=== PATIENT | female | born 1955 | race Caucasian/White ===

== ENCOUNTER 2025-01-19 11:50 | Inpatient (IN) | payer MEDICARE, OTHER ==
[~2025-01-19] VITALS: Ht 157.5 cm; Wt 74.0 kg
[2025-01-19] VITALS (9 sets, daily range): BP systolic 121–135; BP diastolic 68–94; TEMP 97.9–99.1; O2SAT 99–100
[~2025-01-19 11:50] MED LIST: ERGO500093 PO
[2025-01-19 12:40] LABS: BASOPHILS # (AUTO) 0.1 K/uL (0.0-0.2); BASOPHILS % (AUTO) 1.1 % (0.0-2.0); EOSINOPHILS # (AUTO) 0.1 K/uL (0.0-0.7); EOSINOPHILS % (AUTO) 0.8 % (0.0-6.0); HEMATOCRIT 23 % (33-45); HEMOGLOBIN 7.3 g/dL (11.5-14.8); LYMPHOCYTES # (AUTO) 1.5 K/uL (0.8-4.8); LYMPHOCYTES % (AUTO) 19.4 % (20.0-44.0); MEAN CORPUSCULAR HEMOGLOBIN 28 PG (26.0-33.0); MEAN CORPUSCULAR HGB CONC 31 g/dl (31.0-36.0); MEAN CORPUSCULAR VOLUME 88 fL (82-100); MONOCYTES # (AUTO) 1.1 K/uL (0.1-1.30); MONOCYTES % (AUTO) 14.1 % (2.0-12.0); NEUTROPHILS # (AUTO) 4.9 K/uL (1.8-8.9); NEUTROPHILS % (AUTO) 64.6 % (43.0-81.0); PLATELET COUNT (AUTO) 358 K/uL (150-450); RED BLOOD CELL COUNT(AUTO) 2.65 MIL/uL (4.0-5.2); RED CELL DISTRIBUTION WIDTH 25.7 % (11.5-15.0); WHITE BLOOD COUNT (AUTO) 7.5 K/uL (4.3-11.0)
[2025-01-19 12:47] LABS: CALCIUM, SERUM 9.3 mg/dL (8.5-10.1); CREATININE 0.8 mg/dL (0.6-1.3); POTASSIUM 3.7 mmol/L (3.5-5.1)
[2025-01-19 12:53] LABS: INR 1.09 (0.91-1.10); PARTIAL THROMBOPLASTIN TIME 23.9 SEC (24.3-34.3); PROTHROMBIN TIME 11.2 SECS (9.2-11.1)
[2025-01-19] MEDS ORDERED: MAG HYDROX/AL HYDROX/SIMETH 30 ML UDC PO PRN (16:30)
[2025-01-19] MEDS ORDERED: MAGNESIUM HYDROXIDE 30 ML UDC PO PRN (16:30)
[2025-01-19] MEDS ORDERED: HYDROCODONE/APAP 5/325MG TABLET PO PRN (16:30)
[2025-01-19] MEDS ORDERED: ONDANSETRON HCL/PF 4 MG/2 ML VIAL IVP PRN (16:30)
[2025-01-19] MEDS ORDERED: Z GUARD REMEDY 4 OZ OINT TP PRN (16:30)
[2025-01-19] MEDS ORDERED: ACETAMINOPHEN 325 MG TABLET PO PRN (16:30)
[2025-01-19] MEDS ORDERED: IOHEXOL-300 100 ML VIAL IV ONE (17:29)
[2025-01-19] MEDS ORDERED: IV NS 0.9% 250 ML IV ONE (17:29)
[2025-01-19] MEDS ORDERED: ATOR20TA PO (19:45)
[2025-01-19] MEDS ORDERED: PROC-11 PO (19:45)
[2025-01-19] MEDS ORDERED: ACET-637 PO (19:45)
[2025-01-19] MEDS ORDERED: MENT71OI TP (19:45)
[2025-01-19] MEDS ORDERED: ACET325T53 PO (19:45)
[2025-01-19] MEDS ORDERED: ONDA4TAB11 PO (19:45)
[2025-01-19] MEDS ORDERED: DOCU100C36 PO (19:45)
[2025-01-19] MEDS ORDERED: PANT40TA49 PO (19:45)
[2025-01-19] MEDS ORDERED: QUET50TA PO (19:45)
[2025-01-19] MEDS ORDERED: MULT-594 PO (19:45)
[2025-01-20 03:32] LABS: CALCIUM, SERUM 8.8 mg/dL (8.5-10.1); CREATININE 0.7 mg/dL (0.6-1.3); MAGNESIUM 2.1 mg/dL (1.8-2.4); POTASSIUM 3.5 mmol/L (3.5-5.1)
[2025-01-20 03:47] LABS: BASOPHILS # (AUTO) 0.2 K/uL (0.0-0.2); BASOPHILS % (AUTO) 3.3 % (0.0-2.0); EOSINOPHILS # (AUTO) 0.1 K/uL (0.0-0.7); EOSINOPHILS % (AUTO) 0.9 % (0.0-6.0); HEMATOCRIT 27 % (33-45); HEMOGLOBIN 8.4 g/dL (11.5-14.8); LYMPHOCYTES # (AUTO) 2.1 K/uL (0.8-4.8); LYMPHOCYTES % (AUTO) 27.9 % (20.0-44.0); MEAN CORPUSCULAR HEMOGLOBIN 28 PG (26.0-33.0); MEAN CORPUSCULAR HGB CONC 31 g/dl (31.0-36.0); MEAN CORPUSCULAR VOLUME 88 fL (82-100); MONOCYTES # (AUTO) 1.1 K/uL (0.1-1.30); MONOCYTES % (AUTO) 15.4 % (2.0-12.0); NEUTROPHILS # (AUTO) 3.9 K/uL (1.8-8.9); NEUTROPHILS % (AUTO) 52.5 % (43.0-81.0); PLATELET COUNT (AUTO) 366 K/uL (150-450); RED BLOOD CELL COUNT(AUTO) 3.04 MIL/uL (4.0-5.2); RED CELL DISTRIBUTION WIDTH 23.9 % (11.5-15.0); WHITE BLOOD COUNT (AUTO) 7.4 K/uL (4.3-11.0)
[2025-01-20 04:27] LABS: ANISOCYTOSIS 2+; BASOPHILS % (MANUAL) 1 % (0.0-2.0); LYMPHOCYTES % (MANUAL) 22 % (16-48); MONOCYTES % (MANUAL) 12 % (0-11.0); NEUTROPHILS % (MANUAL) 65 (42-76); PLATELET ESTIMATE ADEQUATE
[2025-01-20 07:00] VITALS: BP 139/79; TEMP 98.2; O2SAT 99
[2025-01-20] MEDS ORDERED: SOD FERRIC GLUC 125 MG in IV NS 0.9% 100 ML IV SCH (14:00)
[2025-01-20 16:00] VITALS: BP 126/91; TEMP 98.6; O2SAT 100
[2025-01-20 17:01] LABS: BASOPHILS # (AUTO) 0.1 K/uL (0.0-0.2); EOSINOPHILS # (AUTO) 0.1 K/uL (0.0-0.7); HEMOGLOBIN 9.2 g/dL (11.5-14.8)
[2025-01-20 17:06] LABS: BASOPHILS % (AUTO) 1.4 % (0.0-2.0); EOSINOPHILS % (AUTO) 0.8 % (0.0-6.0); HEMATOCRIT 29 % (33-45); LYMPHOCYTES # (AUTO) 2.6 K/uL (0.8-4.8); LYMPHOCYTES % (AUTO) 28.3 % (20.0-44.0); MEAN CORPUSCULAR HEMOGLOBIN 28 PG (26.0-33.0); MEAN CORPUSCULAR HGB CONC 32 g/dl (31.0-36.0); MEAN CORPUSCULAR VOLUME 88 fL (82-100); MONOCYTES # (AUTO) 0.7 K/uL (0.1-1.30); MONOCYTES % (AUTO) 7.6 % (2.0-12.0); NEUTROPHILS # (AUTO) 5.6 K/uL (1.8-8.9); NEUTROPHILS % (AUTO) 61.9 % (43.0-81.0); PLATELET COUNT (AUTO) 411 K/uL (150-450); RED BLOOD CELL COUNT(AUTO) 3.29 MIL/uL (4.0-5.2); RED CELL DISTRIBUTION WIDTH 24.1 % (11.5-15.0); WHITE BLOOD COUNT (AUTO) 9.1 K/uL (4.3-11.0)
[2025-01-20 20:33] VITALS: BP 138/83; TEMP 99.3; O2SAT 99
[2025-01-21 07:26] LABS: BASOPHILS # (AUTO) 0.1 K/uL (0.0-0.2); EOSINOPHILS % (AUTO) 0.5 % (0.0-6.0); HEMATOCRIT 30 % (33-45); HEMOGLOBIN 9.7 g/dL (11.5-14.8); LYMPHOCYTES # (AUTO) 1.8 K/uL (0.8-4.8); MEAN CORPUSCULAR HEMOGLOBIN 28 PG (26.0-33.0); MEAN CORPUSCULAR HGB CONC 32 g/dl (31.0-36.0); MEAN CORPUSCULAR VOLUME 87 fL (82-100); MONOCYTES # (AUTO) 0.9 K/uL (0.1-1.30); NEUTROPHILS # (AUTO) 5.8 K/uL (1.8-8.9); NEUTROPHILS % (AUTO) 67.5 % (43.0-81.0); PLATELET COUNT (AUTO) 432 K/uL (150-450); RED CELL DISTRIBUTION WIDTH 23.7 % (11.5-15.0); WHITE BLOOD COUNT (AUTO) 8.5 K/uL (4.3-11.0)
[2025-01-21 07:30] VITALS: BP 163/92; TEMP 98.1; O2SAT 98
[2025-01-21 07:42] LABS: CALCIUM, SERUM 9.2 mg/dL (8.5-10.1); CREATININE 0.8 mg/dL (0.6-1.3); POTASSIUM 3.9 mmol/L (3.5-5.1)
[2025-01-21] MEDS ORDERED: IV NS 0.9% 250 ML IV ONE (09:24)
[2025-01-21] MEDS ORDERED: CT SWABBABLE VALVE TRANS SET 1 EA INFUS.SET MC ONE (09:24)
[2025-01-21] MEDS ORDERED: IOHEXOL-300 100 ML VIAL IV ONE (09:24)
[2025-01-21] MEDS ORDERED: FENTANYL PF 250MCG/5ML AMPUL ONE (17:11)
[2025-01-21] MEDS ORDERED: MIDAZOLAM HCL 2 MG/2ML VIAL ONE (17:12)
[2025-01-21] MEDS ORDERED: ROCURONIUM BROMIDE 50 MG/5 ML ONE (17:12)
[2025-01-21] MEDS ORDERED: METHYLENE BLUE 10 ML VIAL ONE (18:19)
[2025-01-21] MEDS ORDERED: HYDROCODONE/APAP 5/325MG TABLET PO PRN (19:30)
[2025-01-21 20:00] VITALS: BP 131/64; TEMP 97.6; O2SAT 99
[2025-01-21] MEDS ORDERED: MORPHINE SULFATE INJ 10 MG/ML DISP.SYRIN IV PRN (20:00)
[2025-01-21] MEDS ORDERED: MEPERIDINE HCL/PF 50 MG/ML DISP.SYRIN IV PRN (20:00)
[2025-01-21 22:00] VITALS: BP 163/72; TEMP 97.6; O2SAT 99
[2025-01-22] MEDS: MORPHINE SULFATE INJ 2 MG/ML DISP.SYRIN IV PRN (01:36)
[2025-01-22 08:00] VITALS: BP 131/78; TEMP 98.3; O2SAT 98
[2025-01-22 08:00] LABS: BASOPHILS # (AUTO) 0.1 K/uL (0.0-0.2); BASOPHILS % (AUTO) 1.4 % (0.0-2.0); EOSINOPHILS % (AUTO) 0.3 % (0.0-6.0); HEMATOCRIT 26 % (33-45); HEMOGLOBIN 8.2 g/dL (11.5-14.8); LYMPHOCYTES # (AUTO) 1.7 K/uL (0.8-4.8); LYMPHOCYTES % (AUTO) 23.3 % (20.0-44.0); MEAN CORPUSCULAR HEMOGLOBIN 27 PG (26.0-33.0); MEAN CORPUSCULAR HGB CONC 32 g/dl (31.0-36.0); MEAN CORPUSCULAR VOLUME 87 fL (82-100); MONOCYTES # (AUTO) 0.7 K/uL (0.1-1.30); MONOCYTES % (AUTO) 9.4 % (2.0-12.0); NEUTROPHILS # (AUTO) 4.9 K/uL (1.8-8.9); NEUTROPHILS % (AUTO) 65.6 % (43.0-81.0); PLATELET COUNT (AUTO) 416 K/uL (150-450); RED BLOOD CELL COUNT(AUTO) 2.97 MIL/uL (4.0-5.2); RED CELL DISTRIBUTION WIDTH 23.4 % (11.5-15.0); WHITE BLOOD COUNT (AUTO) 7.5 K/uL (4.3-11.0)
[2025-01-22 08:12] LABS: INR 1.09 (0.91-1.10); PROTHROMBIN TIME 11.5 SECS (9.2-11.1)
[2025-01-22 08:34] LABS: CALCIUM, SERUM 8.6 mg/dL (8.5-10.1); CREATININE 0.6 mg/dL (0.6-1.3); POTASSIUM 3.7 mmol/L (3.5-5.1)
[2025-01-22] MEDS ORDERED: DOCUSATE SODIUM 100 MG CAPSULE PO PRN (11:00)
[2025-01-22] MEDS ORDERED: CLONIDINE HCL 0.1 MG TABLET PO PRN (11:00)
[2025-01-22 16:00] VITALS: BP 122/74; TEMP 97.9; O2SAT 99
[2025-01-22 16:23] LABS: HEMOGLOBIN 8.3 g/dL (11.5-14.8)
[2025-01-22] MEDS: QUETIAPINE FUMARATE 25 MG TABLET PO SCH (16:25)
[2025-01-22 20:00] VITALS: BP 136/77; TEMP 98.6; O2SAT 99
[2025-01-23 08:00] VITALS: BP 117/66; TEMP 97.5; O2SAT 99
[2025-01-23] MEDS: PANTOPRAZOLE 40 MG TABLET.DR PO SCH (09:00)
[2025-01-23 13:00] LABS: BASOPHILS # (AUTO) 0.1 K/uL (0.0-0.2); BASOPHILS % (AUTO) 1.4 % (0.0-2.0); EOSINOPHILS % (AUTO) 0.4 % (0.0-6.0); HEMATOCRIT 26 % (33-45); HEMOGLOBIN 8.3 g/dL (11.5-14.8); LYMPHOCYTES # (AUTO) 2.2 K/uL (0.8-4.8); LYMPHOCYTES % (AUTO) 34.9 % (20.0-44.0); MEAN CORPUSCULAR HEMOGLOBIN 28 PG (26.0-33.0); MEAN CORPUSCULAR HGB CONC 32 g/dl (31.0-36.0); MEAN CORPUSCULAR VOLUME 88 fL (82-100); MONOCYTES # (AUTO) 0.4 K/uL (0.1-1.30); MONOCYTES % (AUTO) 5.5 % (2.0-12.0); NEUTROPHILS # (AUTO) 3.7 K/uL (1.8-8.9); NEUTROPHILS % (AUTO) 57.8 % (43.0-81.0); PLATELET COUNT (AUTO) 381 K/uL (150-450); RED BLOOD CELL COUNT(AUTO) 2.93 MIL/uL (4.0-5.2); RED CELL DISTRIBUTION WIDTH 23.7 % (11.5-15.0); WHITE BLOOD COUNT (AUTO) 6.4 K/uL (4.3-11.0)
[2025-01-23 16:00] VITALS: BP 122/67; TEMP 98.1; O2SAT 99
[2025-01-23 20:41] VITALS: BP 120/79; TEMP 97.9; O2SAT 95
[2025-01-24 08:00] VITALS: BP 123/60; TEMP 97.6; O2SAT 100
[2025-01-24] MEDS ORDERED: BUPIVACAINE 0.5 % PF 150 MG/30 ML VIAL ONE ×2 (15:19→17:15)
[2025-01-24] MEDS ORDERED: LIDOCAINE 1%-EPI 1:100,000 20 ML VIAL ONE ×3 (15:19→17:15)
[2025-01-24] MEDS ORDERED: MORPHINE SULFATE INJ 4 MG/ML DISP.SYRIN ONE ×2 (15:33→19:01)
[2025-01-24] MEDS ORDERED: FENTANYL PF 100MCG/2ML AMPUL ONE ×2 (15:33→19:00)
[2025-01-24] MEDS ORDERED: MIDAZOLAM HCL 2 MG/2ML VIAL ONE (15:34)
[2025-01-24] MEDS ORDERED: ROCURONIUM BROMIDE 50 MG/5 ML ONE (15:34)
[2025-01-24] MEDS ORDERED: SEVOFLURANE 250 ML BOTTLE IH ONE (17:39)
[2025-01-24] MEDS ORDERED: ALBUMIN 5% 250 ML IV ONE (18:26)
[2025-01-24] MEDS ORDERED: BACITRACIN ZINC OINT (15 GM) 15 GM TUBE TP ONE (19:13)
[2025-01-24] MEDS ORDERED: BACITRACIN/POLYMYXIN B 15 GM TUBE TP ONE (19:13)
[2025-01-24 20:00] VITALS: BP 146/87; TEMP 97.3; O2SAT 96
[2025-01-25 08:00] VITALS: BP 149/65; TEMP 98.2; O2SAT 99
[2025-01-25 11:02] LABS: BASOPHILS # (AUTO) 0.1 K/uL (0.0-0.2); BASOPHILS % (AUTO) 0.9 % (0.0-2.0); EOSINOPHILS % (AUTO) 0.5 % (0.0-6.0); HEMATOCRIT 26 % (33-45); HEMOGLOBIN 7.9 g/dL (11.5-14.8); LYMPHOCYTES # (AUTO) 1.1 K/uL (0.8-4.8); LYMPHOCYTES % (AUTO) 17.2 % (20.0-44.0); MEAN CORPUSCULAR HEMOGLOBIN 29 PG (26.0-33.0); MEAN CORPUSCULAR HGB CONC 31 g/dl (31.0-36.0); MEAN CORPUSCULAR VOLUME 94 fL (82-100); MONOCYTES # (AUTO) 1.1 K/uL (0.1-1.30); MONOCYTES % (AUTO) 17.1 % (2.0-12.0); NEUTROPHILS % (AUTO) 64.3 % (43.0-81.0); PLATELET COUNT (AUTO) 377 K/uL (150-450); RED BLOOD CELL COUNT(AUTO) 2.72 MIL/uL (4.0-5.2); RED CELL DISTRIBUTION WIDTH 24.4 % (11.5-15.0); WHITE BLOOD COUNT (AUTO) 6.2 K/uL (4.3-11.0)
[2025-01-25 11:17] LABS: CALCIUM, SERUM 8.3 mg/dL (8.5-10.1); CREATININE 0.6 mg/dL (0.6-1.3); POTASSIUM 3.5 mmol/L (3.5-5.1)
[2025-01-25 11:40] LABS: ANISOCYTOSIS 2+; BASOPHILS % (MANUAL) 0 % (0.0-2.0); EOSINOPHILS % (MANUAL) 0 % (0-4); LYMPHOCYTES % (MANUAL) 22 % (16-48); MONOCYTES % (MANUAL) 10 % (0-11.0); NEUTROPHILS % (MANUAL) 68 (42-76); PLATELET ESTIMATE ADEQUATE
[2025-01-25 16:00] VITALS: BP 134/66; TEMP 98.2; O2SAT 96
[2025-01-25 20:00] VITALS: BP 107/70; TEMP 97.9; O2SAT 96
[2025-01-25] MEDS: HEPARIN SODIUM, PORCINE 5000 UNITS/1 ML VIAL SQ SCH (21:00)
[2025-01-26 08:00] VITALS: BP 121/58; TEMP 98.6; O2SAT 98
[2025-01-26 16:00] VITALS: BP 98/63; TEMP 99.1; O2SAT 98
[2025-01-26 20:00] VITALS: BP 95/80; TEMP 99.3; O2SAT 97
[2025-01-27] VITALS (11 sets, daily range): BP systolic 105–131; BP diastolic 59–88; TEMP 97.8–98.3; O2SAT 94–100
[2025-01-27 07:07] LABS: BASOPHILS # (AUTO) 0.1 K/uL (0.0-0.2); BASOPHILS % (AUTO) 1.4 % (0.0-2.0); EOSINOPHILS # (AUTO) 0.1 K/uL (0.0-0.7); EOSINOPHILS % (AUTO) 1.7 % (0.0-6.0); HEMATOCRIT 21 % (33-45); LYMPHOCYTES # (AUTO) 1.5 K/uL (0.8-4.8); LYMPHOCYTES % (AUTO) 24.3 % (20.0-44.0); MEAN CORPUSCULAR HEMOGLOBIN 28 PG (26.0-33.0); MEAN CORPUSCULAR HGB CONC 32 g/dl (31.0-36.0); MEAN CORPUSCULAR VOLUME 89 fL (82-100); MONOCYTES # (AUTO) 1.3 K/uL (0.1-1.30); MONOCYTES % (AUTO) 21.4 % (2.0-12.0); NEUTROPHILS # (AUTO) 3.2 K/uL (1.8-8.9); NEUTROPHILS % (AUTO) 51.2 % (43.0-81.0); PLATELET COUNT (AUTO) 338 K/uL (150-450); RED CELL DISTRIBUTION WIDTH 24.3 % (11.5-15.0); WHITE BLOOD COUNT (AUTO) 6.2 K/uL (4.3-11.0)
[2025-01-27 07:29] LABS: CALCIUM, SERUM 8.6 mg/dL (8.5-10.1); CREATININE 0.7 mg/dL (0.6-1.3); POTASSIUM 3.5 mmol/L (3.5-5.1)
[2025-01-27 07:41] LABS: HEMOGLOBIN 6.8 g/dL (11.5-14.8)
[2025-01-27 14:15] LABS: LYMPHOCYTES % (MANUAL) 25 % (16-48); MONOCYTES % (MANUAL) 17 % (0-11.0); NEUTROPHILS % (MANUAL) 56 (42-76)
[2025-01-27 14:16] LABS: ANISOCYTOSIS 1+; EOSINOPHILS % (MANUAL) 2 % (0-4); PLATELET ESTIMATE ADEQUATE
[2025-01-27] MEDS: NEOMY SULF/BACITRAC ZN/POLY 15 GM TUBE TP STA (15:08)
[2025-01-27 19:16] LABS: HEMOGLOBIN 7.7 g/dL (11.5-14.8)
[2025-01-28 08:00] VITALS: BP 149/70; TEMP 97.7; O2SAT 100
== END 2025-01-28 14:21 | DRG 578 ==
LOC: ER 11:59 → MED 14:50
PROVIDERS: ADMIT Internal Medicine; ATTEND Internal Medicine
PROC: 30233N1 Transfusion of Nonautologous Red Blood Cells into Peripheral Vein, Percutaneous Approach (ICD-10-PCS; principal; 2025-01-19)
PROC: 07B60ZX Excision of Left Axillary Lymphatic, Open Approach, Diagnostic (ICD-10-PCS; 2025-01-21)
PROC: 0HBU0ZZ Excision of Left Breast, Open Approach (ICD-10-PCS; 2025-01-21)
PROC: 0KBJ0ZZ Excision of Left Thorax Muscle, Open Approach (ICD-10-PCS; 2025-01-21)
PROC: 0HX5XZZ Transfer Chest Skin, External Approach (ICD-10-PCS; 2025-01-24)
DX: C50.912 Malignant neoplasm of unspecified site of left female breast (principal); Z66 Do not resuscitate; Z92.21 Personal history of antineoplastic chemotherapy; D50.9 Iron deficiency anemia, unspecified; D64.9 Anemia, unspecified; Z79.899 Other long term (current) drug therapy
CPT/HCPCS: 36415; 71045-TC; 71260-TC; 80048-TC; 82728-TC; 83540-TC; 83735-TC; 84100-TC; 85025-TC; 85027-TC; 85610-TC; 85730-TC; 86850-TC; 87081-TC; 88108-TC; 88305-TC; 88312-TC; 88342; A6253; A9541; G0378; J0330; J0690; J1100; J1644; J2250; J2270; J2405; J2704; J2765; J2916; J3010; J3490; J7030; J7040; J7050; P9016; P9045; Q9967; Q9968

== ENCOUNTER 2025-02-22 11:28 | Outpatient (CLI) | payer MEDICARE, OTHER ==
[~2025-02-22 11:28] MED LIST changes: +ACET-637 PO; +ACET325T53 PO; +ATOR20TA PO; +DOCU100C36 PO; +MENT71OI TP; +MULT-594 PO; +ONDA4TAB11 PO; +PANT40TA49 PO; +PROC-11 PO; +QUET50TA PO
== END 2025-02-22 23:59 | disposition home or self-care (01) ==
LOC: WOU 11:28
PROVIDERS: ATTEND Student in an Organized Health Care Education/Training Program
DX: Z48.3 Aftercare following surgery for neoplasm (principal); C50.912 Malignant neoplasm of unspecified site of left female breast; I78.1 Nevus, non-neoplastic; Z92.21 Personal history of antineoplastic chemotherapy; S21.102A Unspecified open wound of left front wall of thorax without penetration into thoracic cavity, initial encounter; X58.XXXA Exposure to other specified factors, initial encounter
CPT/HCPCS: 11042; A6254